=== PATIENT | female | born 1995 | race Caucasian/White ===

== ENCOUNTER 2019-03-25 01:35 | Emergency (ER) | payer SELFPAY ==
[2019-03-25] MEDS ORDERED: traMADol 50 MG Tab PO ONE (01:36)
[2019-03-25] MEDS ORDERED: Sodium Chloride 0.9% 1,000 ML IV ONE (02:01)
[2019-03-25] MEDS ORDERED: Morphine 2 MG/ML SYRINGE IVPUSH ONE (02:04)
[2019-03-25] MEDS ORDERED: Ondansetron 4 MG/2 ML SDV IVPUSH ONE (02:04)
--- NOTE | 2019-03-25 02:54 | EDM.PDOC ---
ED HPI GENERAL MEDICAL PROBLEM - General Chief Complaint: Abdominal Pain Stated Complaint: VOMITING Time Seen by Provider: 03/25/19 02:49 Source of Information: Reports: Patient History Limitations: Reports: No Limitations - History of Present Illness INITIAL COMMENTS - FREE TEXT/NARRATIVE: Isabelle is a 23 yo female with severe right upper abdominal pain,sudden onset at 7pm. Radiated to the back.Associated with vomiting for the last hour. She apparently has had 3 similar "attacks' in the last few months,thought to be gallbladder related. Previously considered a surgical candidate,but was not able to do it due to logistical reasons. R upper abomen Pain Score (Numeric/FACES): 7 - Related Data Allergies Allergy/AdvReac Type Severity Reaction Status Date / Time ciprofloxacin [From Cipro] Allergy Rash Verified 03/25/19 01:40 fentanyl Allergy Rash Verified 03/25/19 01:40 ibuprofen Allergy Rash Verified 03/25/19 01:40 Home Meds: Home Meds NK [No Known Home Meds] 03/25/19 [History] Past Medical History Gastrointestinal History: Reports: Cholelithiasis, PUD Genitourinary History: Reports: Pyelonephritis PREPARER History: Reports: Other PREPARER History: [id number] Musculoskeletal History: Reports: Fracture Other Musculoskeletal History: hx R elbow Psychiatric History: Reports: Depression, Suicide Attempt - Past Surgical History Musculoskeletal Surgical History: Reports: Other (See Below) Other Musculoskeletal Surgeries/Procedures:: R elbow surgery Social & Family History - Family History Family Medical History: Noncontributory - Tobacco Use Smoking Status *Q: Current Every Day Smoker Years of Tobacco use: 8 Packs/Tins Daily: 0.5 - Caffeine Use Caffeine Use: Reports: None - Recreational Drug Use Recreational Drug Use: Yes Recreational Drug Type: Reports: Marijuana/Hashish Recreational Drug Use Frequency: Weekly ED ROS GENERAL - Review of Systems Review Of Systems: Comprehensive ROS is negative, except as noted in HPI. ED EXAM, GI/ABD - Physical Exam Exam: See Below Exam Limited By: No Limitations General Appearance: Alert, WD/WN Ears: Normal External Exam Nose: Normal Inspection Throat/Mouth: Normal Inspection Head: Atraumatic GI/Abdominal Exam: Normal Bowel Sounds, Soft, No Mass, Tender (RUQ). No: Distended, Guarding, Rebound Back Exam: Normal Inspection Extremities: Normal Inspection Course - Vital Signs Last Recorded V/S: Last Vital Signs Temp 97.6 F 03/25/19 01:41 Pulse 80 03/25/19 01:41 Resp 18 03/25/19 01:41 BP 116/57 L 03/25/19 01:41 Pulse Ox 100 03/25/19 01:41 - Orders/Labs/Meds Orders: Active Orders 24 hr Category Date Time Status Sodium Chloride 0.9% [Normal Saline] 1,000 ml Med 03/25/19 02:01 Active IV .BOLUS Medication Orders Sodium Chloride (Normal Saline) 1,000 mls @ 999 mls/hr IV .BOLUS ONE Stop: 03/25/19 03:01 Last Admin: 03/25/19 02:23 Dose: 999 mls/hr Labs: Laboratory Tests 03/25/19 03/25/19 03/25/19 Range/Units 02:23 02:23 02:23 WBC 13.5 H (4.5-12.0) X10-3/uL RBC 4.79 (3.23-5.20) x10(6)uL Hgb 13.6 (11.5-15.5) g/dL Hct 41.2 (30.0-51.3) % MCV 86.0 (80-96) fL MCH 28.3 (27.7-33.6) pg MCHC 32.9 (32.2-35.4) g/dL RDW 13.9 (11.5-15.5) % Plt Count 245 (125-369) X10(3)uL MPV 8.5 (7.4-10.4) fL Add Manual Diff Yes Neutrophils % (Manual) 80 (46-82) % Band Neutrophils % 1 (0-6) % Lymphocytes % (Manual) 14 (13-37) % Monocytes % (Manual) 3 L (4-12) % Eosinophils % (Manual) 1 (0-5) % Basophils % (Manual) 1 (0-2) % Sodium 143 (135-145) mmol/L Potassium 3.7 (3.5-5.3) mmol/L Chloride 106 (100-110) mmol/L Carbon Dioxide 25 (21-32) mmol/L BUN 15 (7-18) mg/dL Creatinine 0.7 (0.55-1.02) mg/dL Est Cr Clr Drug Dosing 123.63 mL/min Estimated GFR (MDRD) > 60 (>60) BUN/Creatinine Ratio 21.4 H (9-20) Glucose 91 (80-116) mg/dL Calcium 8.8 (8.6-10.2) mg/dL Total Bilirubin 0.8 (0.1-1.3) mg/dL AST 111 H (5-25) IU/L ALT 46 H (12-36) U/L Alkaline Phosphatase 83 (56-112) IU/L Total Protein 6.8 (6.0-8.0) g/dL Albumin 3.7 (3.5-5.2) g/dL Globulin 3.1 g/dL Albumin/Globulin Ratio 1.2 Amylase 60 (25-115) U/L Meds: Medications Generic Name Dose Route Start Last Admin Trade Name Freq PRN Reason Stop Dose Admin Sodium Chloride 1,000 mls @ 999 mls/hr 03/25/19 02:01 03/25/19 02:23 Normal Saline IV 03/25/19 03:01 999 mls/hr .BOLUS ONE Administration Discontinued Medications Generic Name Dose Route Start Last Admin Trade Name Freq PRN Reason Stop Dose Admin Morphine Sulfate 2 mg 03/25/19 02:04 03/25/19 02:26 Morphine IVPUSH 03/25/19 02:05 2 mg ONETIME ONE Administration Ondansetron HCl 4 mg 03/25/19 02:04 03/25/19 02:23 Zofran IVPUSH 03/25/19 02:05 4 mg ONETIME ONE Administration Departure - Departure Time of Disposition: 02:53 Disposition: Home, Self-Care 01 Condition: Good Clinical Impression: Abdominal pain - Discharge Information Referrals: PCP,None [Primary Care Provider] - Sepsis Event Note - Evaluation Sepsis Screening Result: No Definite Risk - Focused Exam Vital Signs: Vital Signs Temp Pulse Resp BP Pulse Ox 03/25/19 01:41 97.6 F 80 18 116/57 L 100 Date Exam was Performed: 03/25/19 Time Exam was Performed: 02:49 - Problem List & Annotations (1) Gallstone SNOMED Code(s): 986871664 Code(s): K80.20 - CALCULUS OF GALLBLADDER W/O CHOLECYSTITIS W/O OBSTRUCTION Status: Acute Current Visit: Yes Qualifiers: Cholecystitis presence: without cholecystitis - Problem List Review Problem List Initiated/Reviewed/Updated: Yes - My Orders Last 24 Hours: My Active Orders 03/25/19 02:01 Sodium Chloride 0.9% [Normal Saline] 1,000 ml IV .BOLUS - Assessment/Plan Last 24 Hours: My Active Orders 03/25/19 02:01 Sodium Chloride 0.9% [Normal Saline] 1,000 ml IV .BOLUS Plan: 1 L NS,IV Morphine and Zofran improved her symptoms. Recommend follow up with PCP next week. Sent home on oral Tramadol.
== END 2019-03-25 03:32 | disposition home or self-care (01) ==
LOC: FB.ED 01:35
DX: R10.11 Right upper quadrant pain (principal); R11.10 Vomiting, unspecified; F17.210 Nicotine dependence, cigarettes, uncomplicated; Z88.1 Allergy status to other antibiotic agents; Z88.8 Allergy status to other drugs, medicaments and biological substances
CPT/HCPCS: 36415; 80053; 82150; 85025; 96361; 96374; 96375; 99284; A9270; J2270; J2405; J7030